=== PATIENT | male | born 1960 | race African-American/Black ===

== ENCOUNTER 2017-03-29 03:22 | Emergency (ER) | payer SELFPAY ==
[~2017-03-29] VITALS: Ht 188 cm; Wt 86.2 kg
[2017-03-29 03:45] VITALS: BP 167/107
[2017-03-29] MEDS ORDERED: SODIUM CHLORIDE 0.9% 1,000 ML IV ONE (04:06)
[2017-03-29] MEDS ORDERED: CLONIDINE 0.1MG TABLET PO ONE (04:15)
[2017-03-29 04:30] LABS: BASOPHILS % 0.5 % (0.0-2.0); EOSINOPHILS % 2.4 % (0.0-5.0); HEMATOCRIT. 44.4 % (42.0-52.0); HEMOGLOBIN. 14.5 g/dL (14.0-18.0); LYMPHOCYTES % 34.6 % (20.0-50.0); MEAN CORPUSCULAR HEMOGLOBIN 25.3 pg (28.0-32.0); MEAN CORPUSCULAR VOLUME 77.4 fL (80.0-94.0); MEAN PLATELET VOLUME 9.9 fl (7.4-10.4); MONOCYTES % 5.8 % (2.0-8.0); NEUTROPHILS % 56.7 % (40.0-76.0); PLATELET 190 x1000/uL (130-400); RED BLOOD CELL COUNT 5.73 mill/uL (4.7-6.1); RED CELL DISTRIBUTION WIDTH 14.2 % (11.6-14.6)
[2017-03-29 04:38] LABS: CHLORIDE 104 mEq/L (98-107)
[2017-03-29 04:59] LABS: INR 1.1; PROTHROMBIN TIME 11.3 sec (9.4-11.6)
== END 2017-03-29 07:27 | disposition home or self-care (01) ==
LOC: ER 04:54
DX: R00.2 Palpitations (principal); I10 Essential (primary) hypertension; I16.0 Hypertensive urgency
CPT/HCPCS: 36415; 80053; 85025; 85610; 93005; 96360; 99285; J7030; Z7610